=== PATIENT | female | born 1965 | race Caucasian/White ===

== ENCOUNTER 2020-01-19 14:22 | Inpatient (IN) | payer BC, OTHER ==
[~2020-01-19] VITALS: Ht 170.2 cm; Wt 93.2 kg
[2020-01-19 16:21] LABS: BASOPHILS % (AUTO) 0.4 % (0.0-5.0); EOSINOPHILS % (AUTO) 1.4 % (0.0-8.0); HEMATOCRIT 44.1 % (36-48); LYMPHOCYTES % (AUTO) 21.7 % (21.0-51.0); MEAN CORPUSCULAR HEMOGLOBIN 28.3 pg (27.0-33.0); MEAN CORPUSCULAR HGB CONC 32.4 g/dL (32.0-36.0); MEAN CORPUSCULAR VOLUME 87.2 fL (79-99); MONOCYTES % (AUTO) 7.9 % (3.0-13.0); NEUTROPHILS % (AUTO) 68.3 % (40.0-77.0); PLATELET COUNT (AUTO) 327 K/uL (130-400); RED BLOOD CELL COUNT(AUTO) 5.06 MIL/uL (4.00-5.50); WHITE BLOOD COUNT (AUTO) 9.3 K/uL (4.8-10.8)
[2020-01-19 16:30] LABS: CREATININE 0.7 mg/dL (0.5-1.5)
[2020-01-19 16:33] LABS: INR 0.91 (0.85-1.15); PARTIAL THROMBOPLASTIN TIME 22.9 SEC (26.3-35.5); PROTHROMBIN TIME 9.9 SEC (9.6-11.6)
[2020-01-19 16:41] LABS: ALBUMIN 3.8 g/dL (3.5-5.0); BILIRUBIN,DIRECT 0.1 mg/dL (0.0-0.3); BILIRUBIN,TOTAL 0.4 mg/dL (0.2-1.0)
[2020-01-19] MEDS ORDERED: IOHEXOL-350 75 ML VIAL IV ONE (18:38)
[2020-01-19] MEDS ORDERED: ACETAMINOPHEN 325 MG TAB PO PRN ×2 (23:00)
[2020-01-19] MEDS ORDERED: ONDANSETRON HCL 4 MG/2 ML VIAL IV PRN (23:00)
[2020-01-19] MEDS ORDERED: HEPARIN 25000 UNITS/250 ML D5W 250 ML IV SCH (23:00)
[2020-01-19] MEDS ORDERED: DEXTROSE 50%-WATER 50 ML DISP.SYRIN IV PRN (23:00)
[2020-01-19] MEDS ORDERED: GLUCAGON 1MG KIT 1 MG ML IM PRN (23:00)
[2020-01-19] MEDS ORDERED: HEPARIN SODIUM 5000UNIT/ML 1ML VIAL ONE (23:37)
[2020-01-19] MEDS ORDERED: HEPARIN 25000 UNITS/250 ML D5W 250 ML IV ONE (23:38)
[2020-01-20] VITALS (7 sets, daily range): BP systolic 110–178; BP diastolic 52–84
--- NOTE | 2020-01-20 02:00 | NUR ---
PATIENT ARRIVED ON UNIT. DENIES CHEST PAIN OR SOB. SWELLING TO BILATERAL ANKLES. RLE WARM TO TOUCH. HEPARIN DRIP INFUSING. WILL CONTINUE TO MONITOR. CALL LIGHT WITHIN REACH.
[2020-01-20] MEDS: INSULIN HUMULIN R 100 UNIT/ML 3ML SQ SCH ×4 (06:57→21:08)
[2020-01-20 07:03] LABS: BASOPHILS % (AUTO) 0.4 % (0.0-5.0); HEMATOCRIT 42.5 % (36-48); LYMPHOCYTES % (AUTO) 29.5 % (21.0-51.0); MEAN CORPUSCULAR HEMOGLOBIN 27.9 pg (27.0-33.0); MEAN CORPUSCULAR HGB CONC 32.5 g/dL (32.0-36.0); MONOCYTES % (AUTO) 9.2 % (3.0-13.0); NEUTROPHILS % (AUTO) 58.5 % (40.0-77.0); PLATELET COUNT (AUTO) 274 K/uL (130-400); RED BLOOD CELL COUNT(AUTO) 4.94 MIL/uL (4.00-5.50); RED CELL DISTRIBUTION WIDTH 14.1 % (11.0-15.5)
[2020-01-20] MEDS ORDERED: LISI-613 PO (07:08)
[2020-01-20] MEDS ORDERED: METF-444 PO (07:08)
[2020-01-20] MEDS ORDERED: ATOR10TA69 PO (07:08)
[2020-01-20] MEDS ORDERED: ESCI10TA54 PO (07:08)
[2020-01-20 07:20] LABS: B-TYPE NATRIURETIC PEPTIDE 12 pg/mL (0-100)
[2020-01-20 07:38] LABS: HEMOGLOBIN A1C 6.9 % (4.0-6.0)
[2020-01-20 07:44] LABS: ALANINE AMINOTRANSFERASE 29 U/L (12-78); ALBUMIN 3.6 g/dL (3.5-5.0); ASPARTATE AMINOTRANSFERASE 16 U/L (10-37); BILIRUBIN,TOTAL 0.4 mg/dL (0.2-1.0); CARBON DIOXIDE 28 mmol/L (21-32); CHLORIDE 102 mmol/L (101-111); CHOLESTEROL 159 mg/dL (<200); CREATINE KINASE, TOTAL 21 U/L (21-232); CREATININE 0.7 mg/dL (0.5-1.5); GLOMERULAR FILTR. RATE CALC 93 mL/min (>60); GLUCOSE,RANDOM 113 mg/dL (70-105); HDL CHOLESTEROL 62 mg/dL (35-85); LDL DIRECT 81 mg/dL (0-99); MYOGLOBIN 36 ng/mL (10-92); POTASSIUM 4.6 mmol/L (3.5-5.1); SODIUM SERUM 138 mmol/L (136-145); TOTAL PROTEIN, SERUM 7.3 g/dL (6.0-8.3); TRIGLYCERIDES 96 mg/dL (30-200); TROPONIN I < 0.04 ng/mL (0.00-0.06); UREA NITROGEN, BLOOD 22 mg/dL (7-18)
[2020-01-20 08:03] LABS: INR 0.96 (0.85-1.15); PROTHROMBIN TIME 10.4 SEC (9.6-11.6)
[2020-01-20 08:10] LABS: PARTIAL THROMBOPLASTIN TIME 116.5 SEC (26.3-35.5)
[2020-01-20] MEDS: FAMOTIDINE/PF 20 MG/2 ML VIAL IV SCH ×2 (08:33→21:12)
--- NOTE | 2020-01-20 08:43 | NUR ---
cm note pt resides athome with family. no dme. independent w adls/ambulation. dc plan is back home at mo. Addendum: 01/21/20 at 0848 by ARIEL NAVARRO CM Amended: Links added.
--- NOTE | 2020-01-20 14:38 | NUR ---
CHART CHECK COMPLETED. Pt HAS A 54 Y.O. FEMALE ADMITTED SECONDARY TO RIGHT LOWER EXTREMITY DVT AND BILATERAL PULMONARY EMBOLISM. PAST MEDICAL HISTORY SIGNIFICANT FOR HYPERTENSION, DM, DEPRESSION, HYPERCHOLESTEREMIA, RIGHT KNEE REPLACEMENT . Pt CURRENTLY ON CLEAR LIQUID DIET. PLEASE REQUEST FORMAL SKILLED SPEECH/SWALLOW EVALUATION IF Pt PRESENTS WITH +S/S OF ASPIRATION SUCH COUGH RESPONSE, THROAT CLEAR, OR WET VOCAL QUALITY DURING P.O. Addendum: 01/20/20 at 1444 by AD GREY, [facility] Amended: Links added.
[2020-01-20 14:49] LABS: INR 0.94 (0.85-1.15); PARTIAL THROMBOPLASTIN TIME 57.4 SEC (26.3-35.5); PROTHROMBIN TIME 10.2 SEC (9.6-11.6)
[2020-01-20] MEDS: APIXABAN 5 MG TABLET PO SCH (21:00)
[2020-01-21 00:11] VITALS: BP 128/75
[2020-01-21 03:52] VITALS: BP 120/70
[2020-01-21] MEDS: INSULIN HUMULIN R 100 UNIT/ML 3ML SQ SCH (06:05)
[2020-01-21] MEDS: FAMOTIDINE/PF 20 MG/2 ML VIAL IV SCH (07:50)
[2020-01-21] MEDS: APIXABAN 5 MG TABLET PO SCH (07:50)
[2020-01-21 07:54] VITALS: BP 122/69
[2020-01-21 08:33] LABS: BASOPHILS % (AUTO) 0.5 % (0.0-5.0); EOSINOPHILS % (AUTO) 2.4 % (0.0-8.0); HEMATOCRIT 41.7 % (36-48); LYMPHOCYTES % (AUTO) 24.8 % (21.0-51.0); MEAN CORPUSCULAR HEMOGLOBIN 28.2 pg (27.0-33.0); MEAN CORPUSCULAR HGB CONC 32.4 g/dL (32.0-36.0); MEAN CORPUSCULAR VOLUME 87.2 fL (79-99); MONOCYTES % (AUTO) 7.4 % (3.0-13.0); NEUTROPHILS % (AUTO) 64.4 % (40.0-77.0); PLATELET COUNT (AUTO) 293 K/uL (130-400); RED BLOOD CELL COUNT(AUTO) 4.78 MIL/uL (4.00-5.50); RED CELL DISTRIBUTION WIDTH 13.9 % (11.0-15.5); WHITE BLOOD COUNT (AUTO) 7.6 K/uL (4.8-10.8)
[2020-01-21 08:43] LABS: CREATININE 0.8 mg/dL (0.5-1.5); POTASSIUM 4.2 mmol/L (3.5-5.1)
[2020-01-21] MEDS ORDERED: CYANOCOBALAMIN (VITAMIN B-12) 1,000 MCG TABLET PO SCH (09:00)
[2020-01-21] MEDS ORDERED: FOLIC ACID 1 MG TABLET PO SCH (09:00)
--- NOTE | 2020-01-21 09:00 | NUR ---
HEPARIN DRIP STOPPED PER ORDER. FIRST DOSE OF ELIQUIS ADMINISTERED THIS AM. EDUCATION PROVIDED.
[2020-01-21 09:54] LABS: INR 0.95 (0.85-1.15); PARTIAL THROMBOPLASTIN TIME 82.2 SEC (26.3-35.5); PROTHROMBIN TIME 10.3 SEC (9.6-11.6)
[2020-01-21] MEDS ORDERED: APIX5TAB PO (10:01)
--- NOTE | 2020-01-21 11:10 | NUR ---
DISCHARGE INSTRUCTIONS GIVEN TO PATIENT, MADE AWARE OF NEED TO FOLLOW UP WITH PCP AND DR. GUZMAN. MADE AWARE OF NEW RX FOR ELIQUIS. PATIENT AT THIS TIME DENIES ANY CHEST PAIN, DENIES SHORTNESS OF BREATH, DENIES PAIN TO LOWER EXTREMITIES. NO EDEMA NOTED TO BLE. IV X 2 REMOVED. TELE REMOVED. NO ACTIVE BLEEDING NOTED. PATIENT WILL BE PICKED UP BY HER FRIEND.
[2020-01-28] MEDS ORDERED: APIXABAN 5 MG TABLET PO SCH (09:00)
== END 2020-01-21 11:15 | disposition home or self-care (01) | DRG 299 ==
LOC: EDH 14:22 → EDHIP 22:49 → DAHIP 01-20 01:07
PROVIDERS: ADMIT Internal Medicine; ATTEND Internal Medicine
DX: I82.431 Acute embolism and thrombosis of right popliteal vein (principal); I26.99 Other pulmonary embolism without acute cor pulmonale; I82.411 Acute embolism and thrombosis of right femoral vein; F32.9 Major depressive disorder, single episode, unspecified; I10 Essential (primary) hypertension; E11.9 Type 2 diabetes mellitus without complications; E78.00 Pure hypercholesterolemia, unspecified; E78.5 Hyperlipidemia, unspecified; Z96.651 Presence of right artificial knee joint; Z88.0 Allergy status to penicillin
CPT/HCPCS: 36415; 71275; 80048; 80053; 80061; 80076; 82550; 82948; 83036; 83874; 83880; 84484; 85025; 85378; 85610; 85730; 93005; 93306; 93356; 93971; G0378; J1644; J3490; Q9967

== ENCOUNTER 2022-02-12 19:55 | Emergency (ER) | payer MEDICARE ==
[~2022-02-12] VITALS: Ht 170.2 cm; Wt 93.0 kg
[~2022-02-12 19:55] MED LIST: APIX5TAB PO; ATOR10TA69 PO; ESCI-8 PO; LISI20TA24 PO; METF-444 PO
[2022-02-12] MEDS ORDERED: HYDR-3421 PO (20:22)
[2022-02-12] MEDS ORDERED: PERM60CR19 TP (20:22)
[2022-02-12] MEDS ORDERED: HYDROXYZINE 25 MG TABLET PO ONE (20:30)
[2022-02-12 20:42] VITALS: BP 143/67
== END 2022-02-12 20:42 | disposition home or self-care (01) ==
LOC: EDH 19:55
DX: B86 Scabies (principal); E11.9 Type 2 diabetes mellitus without complications; E78.00 Pure hypercholesterolemia, unspecified; I10 Essential (primary) hypertension; E66.9 Obesity, unspecified; Z88.0 Allergy status to penicillin; Z68.32 Body mass index [BMI] 32.0-32.9, adult; Z79.01 Long term (current) use of anticoagulants; Z79.84 Long term (current) use of oral hypoglycemic drugs; Z79.899 Other long term (current) drug therapy

== ENCOUNTER → 2022-10-10 | Outpatient (CLI) | payer MEDICARE ==
[~2022-10-10] VITALS: Ht 170.2 cm; Wt 94.3 kg
[~2022-10-10] MED LIST changes: +AEC81 PO; +DOXY100T2 PO; +HYDR-3421 PO; +MULT-1367 PO; +PERM60CR19 TP; +VANCOMYCIN 1G/250ML KIT 250 ML IV SCH
[2022-10-10 13:03] LABS: BASOPHILS % (AUTO) 0.5 % (0.0-5.0); EOSINOPHILS % (AUTO) 2.2 % (0.0-8.0); HEMATOCRIT 43.5 % (36-48); LYMPHOCYTES % (AUTO) 25.6 % (21.0-51.0); MEAN CORPUSCULAR HEMOGLOBIN 28.8 pg (27.0-33.0); MEAN CORPUSCULAR VOLUME 90.1 fL (79-99); MONOCYTES % (AUTO) 9.4 % (3.0-13.0); NEUTROPHILS % (AUTO) 61.8 % (40.0-77.0); PLATELET COUNT (AUTO) 311 K/uL (130-400); RED BLOOD CELL COUNT(AUTO) 4.83 MIL/uL (4.00-5.50); RED CELL DISTRIBUTION WIDTH 12.8 % (11.0-15.5); WHITE BLOOD COUNT (AUTO) 6.3 K/uL (4.8-10.8)
[2022-10-10 13:07] LABS: APPEARANCE,URINE CLEAR (CLEAR); BILIRUBIN,URINE NEGATIVE (NEGATIVE); COLOR,URINE YELLOW (YELLOW); GLUCOSE, URINE (UA) NEGATIVE (NEGATIVE); KETONES,URINE NEGATIVE (NEGATIVE); LEUKOCYTE ESTERASE ,URINE NEGATIVE Leu/uL (NEGATIVE); NITRATE,URINE NEGATIVE (NEGATIVE); OCCULT BLOOD,URINE NEGATIVE (NEGATIVE); PROTEIN,URINE NEGATIVE (NEGATIVE); UROBILINOGEN,URINE 0.2 mg/dL (0.2-1.0)
[2022-10-10 13:19] LABS: INR 0.93 (0.85-1.15); PROTHROMBIN TIME 9.9 SEC (9.6-11.6)
[2022-10-10 13:21] LABS: CREATININE 0.9 mg/dL (0.5-1.5); PARTIAL THROMBOPLASTIN TIME 27.1 SEC (26.3-35.5); POTASSIUM 4.4 mmol/L (3.5-5.1)
[2022-10-10 14:16] VITALS: BP 117/63
== END | disposition home or self-care (01) ==
LOC: DAH 10:00 → EDSTATUS 11:00
PROVIDERS: ATTEND Urology
DX: Z01.818 Encounter for other preprocedural examination (principal); Z20.822 Contact with and (suspected) exposure to COVID-19; N39.3 Stress incontinence (female) (male); Z79.01 Long term (current) use of anticoagulants; I10 Essential (primary) hypertension; E11.9 Type 2 diabetes mellitus without complications; E78.5 Hyperlipidemia, unspecified
CPT/HCPCS: 71045; 87426; 80048; 84703; 85025; 85610; 85730; 87088; 81003; 36415; 93005; A6260

== ENCOUNTER 2023-02-26 06:24 | Day surgery (SDC) | payer MEDICARE ==
[2023-02-20 13:01] LABS: BASOPHILS # (AUTO) 0.03 K/uL (0.00-0.20); BASOPHILS % (AUTO) 0.4 % (0.0-5.0); EOSINOPHILS % (AUTO) 1.2 % (0.0-8.0); HEMATOCRIT 44.4 % (36-48); IMMATURE GRANULOCYTE ABSOLUTE 0.02 K/uL (0-1); LYMPHOCYTES # (AUTO) 1.7 K/uL (1.0-4.8); LYMPHOCYTES % (AUTO) 20.6 % (21.0-51.0); MEAN CORPUSCULAR HEMOGLOBIN 29.4 pg (27.0-33.0); MEAN CORPUSCULAR HGB CONC 32.7 g/dL (32.0-36.0); MEAN CORPUSCULAR VOLUME 89.9 fL (79-99); MONOCYTES # (AUTO) 0.8 K/uL (0.1-1.0); MONOCYTES % (AUTO) 9.5 % (3.0-13.0); NEUTROPHILS # (AUTO) 5.6 K/uL (1.8-7.7); NEUTROPHILS % (AUTO) 68.1 % (40.0-77.0); PLATELET COUNT (AUTO) 305 K/uL (130-400); RED BLOOD CELL COUNT(AUTO) 4.94 MIL/uL (4.00-5.50); RED CELL DISTRIBUTION WIDTH 12.6 % (11.0-15.5); WHITE BLOOD COUNT (AUTO) 8.2 K/uL (4.8-10.8)
[2023-02-20 13:05] LABS: APPEARANCE,URINE CLEAR (CLEAR); BILIRUBIN,URINE NEGATIVE (NEGATIVE); COLOR,URINE YELLOW (YELLOW); GLUCOSE, URINE (UA) NEGATIVE (NEGATIVE); KETONES,URINE NEGATIVE (NEGATIVE); LEUKOCYTE ESTERASE ,URINE 25 Leu/uL (NEGATIVE); NITRATE,URINE NEGATIVE (NEGATIVE); OCCULT BLOOD,URINE NEGATIVE (NEGATIVE); PROTEIN,URINE 10 mg/dL (NEGATIVE); UROBILINOGEN,URINE 0.2 mg/dL (0.2-1.0)
[2023-02-20 13:09] LABS: ADD UA MICROSCOPIC YES
[2023-02-20 13:11] LABS: CREATININE 0.7 mg/dL (0.5-1.5); POTASSIUM 4.8 mmol/L (3.5-5.1)
[2023-02-20 13:12] LABS: INR < 0.93 (0.85-1.15); PROTHROMBIN TIME 10.1 SEC (9.6-11.6)
[2023-02-20 13:14] LABS: MUCUS,URINE RARE LPF (None Seen); PARTIAL THROMBOPLASTIN TIME 25.4 SEC (26.3-35.5); SQUAMOUS EPITHELIAL CELL,UR FEW /HPF (0-2)
[2023-02-20 13:15] LABS: BACTERIA,URINE Few /HPF (None Seen)
[2023-02-20 14:05] VITALS: BP 128/62; PULSE 69; RESP 17
[2023-02-26] VITALS (17 sets, daily range): BP systolic 100–124; BP diastolic 46–69; PULSE 59–73; RESP 11–18
[~2023-02-26] VITALS: Ht 170.2 cm; Wt 94.0 kg
[~2023-02-26 06:24] MED LIST changes: -AEC81 PO; -APIX5TAB PO; +ASPI-1443 PO; +COLL1POW2 MC; +CYAN500T9 PO; -DOXY100T2 PO; -ESCI-8 PO; +FISH1CAP50 PO; -HYDR-3421 PO; +LACT1CAP81 PO; -MULT-1367 PO; +MULT-952 PO; -PERM60CR19 TP; +PSYL0.4C2 PO; +SEMA1PEN3 SQ; -VANCOMYCIN 1G/250ML KIT 250 ML IV SCH
[2023-02-26] MEDS ORDERED: 0.9%NACL 1000ML 1,000 ML IV ONE (07:02)
[2023-02-26] MEDS ORDERED: CEFTRIAXONE 1G VIAL ONE (07:02)
[2023-02-26] MEDS ORDERED: LIDOCAINE PF 100MG/5ML (2%) SYRINGE 5ML ONE (08:32)
[2023-02-26] MEDS ORDERED: DEXAMETHASONE SOD PHOSPHATE 10MG/ML 1ML VIAL ONE (08:32)
[2023-02-26] MEDS ORDERED: SUCCINYLCHOLINE 200MG/10ML SYR ONE (08:32)
[2023-02-26] MEDS ORDERED: ONDANSETRON 4MG INJ ONE (08:32)
[2023-02-26] MEDS ORDERED: MIDAZOLAM HCL 1 MG/ML 2ML VIAL ONE (08:32)
[2023-02-26] MEDS ORDERED: PROPOFOL 10 MG/ML 20ML VIAL IV ONE (08:32)
[2023-02-26] MEDS ORDERED: FENTANYL CITRATE PF 50 MCG/1 ML 2ML VIAL ONE (08:33)
[2023-02-26] MEDS ORDERED: CEFTRIAXONE 1G VIAL IVPB ONE (09:04)
[2023-02-26] MEDS ORDERED: KETOROLAC 30MG VIAL (30MG/ML) ONE (09:13)
[2023-02-26] MEDS ORDERED: EPHEDRINE SULFATE 50 MG/ML AMPULE ONE (09:28)
== END 2023-02-26 11:30 | disposition home or self-care (01) ==
LOC: DAH 06:24
PROVIDERS: ATTEND Urology
DX: N39.9 Disorder of urinary system, unspecified (principal); N39.3 Stress incontinence (female) (male); E11.9 Type 2 diabetes mellitus without complications; I10 Essential (primary) hypertension; E78.5 Hyperlipidemia, unspecified; I25.10 Atherosclerotic heart disease of native coronary artery without angina pectoris; E66.9 Obesity, unspecified; Z79.01 Long term (current) use of anticoagulants; Z79.899 Other long term (current) drug therapy; Z88.0 Allergy status to penicillin; Z87.891 Personal history of nicotine dependence; Z68.32 Body mass index [BMI] 32.0-32.9, adult; Z90.49 Acquired absence of other specified parts of digestive tract; Z98.890 Other specified postprocedural states
CPT/HCPCS: 80048; 85025; 85610; 85730; 87077; 87088; 87186; 81001; 36415; 71045; 93005; 51715; 82948 ×2; A4600; A6260; J7030 ×2; C1758; L8606; J3010; J0330; J1100; J2001; J3490; J0696 ×2; J2250; J2704; J2405; J1885; A4358; A4215 ×2; A4223; A4222; A4221; A4663